=== PATIENT | female | born 2000 | race Caucasian/White ===

== ENCOUNTER 2024-02-14 11:26 | Emergency (ER) | payer OTHER ==
[~2024-02-14] VITALS: Ht 180.3 cm; Wt 74.8 kg
[2024-02-14] MEDS ORDERED: Dexamethasone Sod Phos 10 MG/ML 1ML VIAL PO ONE (12:40)
== END 2024-02-14 12:57 | disposition home or self-care (01) ==
LOC: ER 11:26
DX: J06.9 Acute upper respiratory infection, unspecified (principal)
CPT/HCPCS: 87081; 87430; 99283; J1100

== ENCOUNTER 2024-02-24 21:58 | Inpatient (IN) | payer OTHER ==
[~2024-02-24] VITALS: Ht 180.3 cm; Wt 75.9 kg
[2024-02-24 22:34] LABS: BASOPHILS ABSOLUTE AUTO 0.04 K/mm3 (0.00-0.23); BASOPHILS PERCENT AUTO 0 % (0-2); EOSINOPHILS ABSOLUTE AUTO 0.02 K/mm3 (0.00-0.68); EOSINOPHILS PERCENT AUTO 0 % (0-6); Hematocrit 39.6 % (33.0-51.0); Hemoglobin 13.8 g/dL (11.5-16.0); IMMATURE GRAN ABSOLUTE AUTO 0.03 K/mm3 (0.00-0.10); IMMATURE GRAN PERCENT AUTO 0 % (0-1); LYMPHOCYTES ABSOLUTE AUTO 2.26 K/mm3 (0.84-5.20); LYMPHOCYTES PERCENT AUTO 17 % (21-46); MONOCYTES ABSOLUTE AUTO 0.59 K/mm3 (0.16-1.47); MONOCYTES PERCENT AUTO 4 % (4-13); Mean Corpuscular HGB 31.6 pg (26.0-34.0); Mean Corpuscular HGB Conc 34.8 g/dL (31.5-36.5); Mean Corpuscular Volume 91 fL (80-100); NEUTROPHILS PERCENT AUTO 78 % (41-73); Platelet Count 293 K/mm3 (150-400); RDW Coefficient Variation 12.7 % (11.7-14.2); Red Blood Cell Count 4.37 M/mm3 (3.80-5.20); White Blood Cell Count 13.44 K/mm3 (4.00-11.30)
[2024-02-24] MEDS ORDERED: Sodium Bicarb 8.4% 1 MEQ/ML 50 ML Vial IV ONE (22:35)
[2024-02-24] MEDS ORDERED: Ondansetron HCl 2 MG / ML 2ML Vial IV ONE (22:35)
[2024-02-24] MEDS ORDERED: Sodium Bicarb 8.4% Inj 150 MEQ in Dextrose 5% 1,000 ML IV SCH (22:55)
[2024-02-24] MEDS ORDERED: Potassium Chloride 40 MEQ in NS 250 ML IV ONE (23:00)
[2024-02-24 23:03] LABS: Ethanol (Alcohol), Blood, Med <3 mg/dL; Magnesium, Blood 2.2 mg/dL (1.6-2.4)
[2024-02-24 23:07] LABS: Bicarbonate Venous 21.2 mmol/L (24.0-30.0); PCO2 Venous 29.2 mmHg (38-42); pH Blood Venous 7.43 (7.34-7.37)
[2024-02-24 23:09] LABS: U Amphetamine Screen Not Detected; U Barbituate Screen Not Detected; U Benzodiazapine Screen Not Detected; U Buprenorphine Screen Not Detected; U Cannabinoids Screen Not Detected; U Cocaine Screen Not Detected; U Methadone Screen Not Detected; U Methamphetamine Screen Not Detected; U Opiates Screen Not Detected; U Oxycodone Screen Not Detected; U Phencyclidine Screen Not Detected
[2024-02-24 23:12] LABS: Acetaminophen, Random <2.0 ug/mL (10.0-30.0); Alanine Aminotransfer (ALT/SGP 22 U/L (12-78); Albumin, Blood 4.5 g/dL (3.4-5.0); Albumin/Globulin Ratio 1.2 (0.8-1.8); Alk Phos 49 U/L (50-136); Anion Gap 13 mmol/L (3-11); Aspartate Aminotrans (AST/SGOT 18 U/L (12-37); Bilirubin, Total 0.2 mg/dL (0.1-1.0); Blood Urea Nitrogen 12 mg/dL (8-24); Bun/Creatinine Ratio 15.4 (12.0-20.0); CO2, Blood 21 mmol/L (21-32); Calcium, Blood 9.1 mg/dL (8.5-10.1); Chloride, Blood 111 mmol/L (98-108); Creatinine, Blood 0.78 mg/dL (0.40-1.00); Globulin, Blood 3.8 g/dL (2.2-4.0); Glomerular Filtration Rate 111 (60-); Glucose, Blood 119 mg/dL (70-99); Phosphorus, Blood 4.1 mg/dL (2.5-4.9); Potassium, Blood 3.8 mmol/L (3.5-5.5); Salicylate 60.7 mg/dL (2.8-20.0); Sodium, Blood 141 mmol/L (136-145); Total Protein, Blood 8.3 g/dL (6.4-8.2)
[2024-02-24 23:24] LABS: International Normalized Ratio 1.07; Prothrombin Time Results 11.4 Sec (9.7-11.5)
[2024-02-24] MEDS ORDERED: NS 1,000 ML IV SCH (23:30)
[2024-02-24] MEDS ORDERED: Charcoal/Sorbitol 50 GM (Cherry Flavor) PO ONE (23:30)
[2024-02-25] VITALS (27 sets, daily range): BP systolic 82–121; BP diastolic 46–75
[2024-02-25] MEDS ORDERED: Ondansetron HCl 2 MG / ML 2ML Vial IV PRN (00:10)
--- NOTE | 2024-02-25 01:30 | NUR ---
ASSUMED CARE OF PT PT ADMITTED INTO ICU 3 FROM ER. PT AMBULATED FROM [facility] TO BED ON HER OWN. PT HAS 2 PIV'S BILA AC'S. SHE HAS SODIUM BICARB GTT GOING AT 250/HR AND KCL RIDER GOING FOR 4 HRS. PT IS ALERT AND ORIENTED X4. PT NAUSEAS NO SIGNS OF BLEEDING CURRENTLY. PT IS WEARING READING GLASSES ALL OTHER BELONGINGS PUT IN LOCKED UPCUPBOARD IN ICU S/T SUICIDE PT PROTOCOL. THERE IS A PHONE AND CLOTHES. PT IS IN PAPER SCRUBS FROM ER. PT HAS NOT VOIDED ON HER OWN OF YET. SHE IS ANXIOUS BUT DOES NOT WANT TO HARM HERSELF CURRENTLY AND SAID SHE HAD AN IMPULSIVE RESPONSE TO SOMETHING THAT HAPPENED AT WORK TODAY. 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 SHE STATED THAT SHE IS FINE WITH HER MOTHER SEEING HER BUT HER FATHER COULD UPSET HER. WILL MONITOR VISITORS WHEN SHE HAS THEM. EKG SHOWS NSR 90'S. QT IS 352. VITALS OTHERWISE UNEVENTFUL/AFEBRILE MAP IN 80'S. PT DID HAVE ONE MOMENT OF NAUSEA AND VOMITTED UP CHARCOAL A TOTAL OF 400ML. ROOM WAS STRIPPED OUT. PT HAS A 1:1 SITTER AT DOORWAY. WILL CONTINUE TX PRESCRIBED.
[2024-02-25] MEDS ORDERED: Charcoal/Sorbitol 50 GM (Cherry Flavor) PO SCH ×2 (02:30→04:00)
[2024-02-25 02:38] LABS: Bicarbonate Venous 22.8 mmol/L (24.0-30.0); PCO2 Venous 35.4 mmHg (38-42); pH Blood Venous 7.41 (7.34-7.37)
[2024-02-25] MEDS ORDERED: Sodium Bicarb 8.4% Inj 150 MEQ in Dextrose 5% 1,000 ML IV SCH ×2 (04:00→06:15)
[2024-02-25 04:46] LABS: BASOPHILS ABSOLUTE AUTO 0.02 K/mm3 (0.00-0.23); BASOPHILS PERCENT AUTO 0 % (0-2); EOSINOPHILS PERCENT AUTO 0 % (0-6); Hematocrit 34.4 % (33.0-51.0); Hemoglobin 11.9 g/dL (11.5-16.0); IMMATURE GRAN ABSOLUTE AUTO 0.01 K/mm3 (0.00-0.10); IMMATURE GRAN PERCENT AUTO 0 % (0-1); LYMPHOCYTES PERCENT AUTO 15 % (21-46); MONOCYTES ABSOLUTE AUTO 0.36 K/mm3 (0.16-1.47); MONOCYTES PERCENT AUTO 4 % (4-13); Mean Corpuscular HGB 31.2 pg (26.0-34.0); Mean Corpuscular HGB Conc 34.6 g/dL (31.5-36.5); Mean Corpuscular Volume 90 fL (80-100); NEUTROPHILS ABSOLUTE AUTO 7.18 K/mm3 (1.96-9.15); NEUTROPHILS PERCENT AUTO 81 % (41-73); Platelet Count 243 K/mm3 (150-400); RDW Coefficient Variation 12.8 % (11.7-14.2); RDW Standard Deviation 42.5 fL (35.1-46.3); Red Blood Cell Count 3.81 M/mm3 (3.80-5.20); White Blood Cell Count 8.87 K/mm3 (4.00-11.30)
[2024-02-25 04:52] LABS: pH Blood Venous 7.53 (7.34-7.37)
[2024-02-25 04:53] LABS: Base Excess Venous -0.9 mmol/L; Bicarbonate Venous 24.7 mmol/L (24.0-30.0); PCO2 Venous 26.4 mmHg (38-42)
[2024-02-25 05:31] LABS: Albumin, Blood 3.6 g/dL (3.4-5.0); Albumin/Globulin Ratio 1.2 (0.8-1.8); Bilirubin, Total 0.2 mg/dL (0.1-1.0); Calcium, Blood 7.7 mg/dL (8.5-10.1); Creatinine, Blood 0.77 mg/dL (0.40-1.00); Globulin, Blood 3.1 g/dL (2.2-4.0); Potassium, Blood 3.5 mmol/L (3.5-5.5); Total Protein, Blood 6.7 g/dL (6.4-8.2)
--- NOTE | 2024-02-25 05:43 | NUR ---
update PT IS WANTING TO REST. SHE IS ENCOURAGED HOWEVER TO DRINK HER LIQUID CHARCOAL. PT'S PT IS 7.52 AND IS WITHING POISON CONTROLS RECOMMENDATIONS WHICH IS 7.45-7.55. PT HAS NOT VOIDED OF YET BUT WAS STRAIGHT CATHED IN THE ER. BICARB GTT GOING AT 250ML/HR TILL SALICYLATE IS BELOW 30 PER POISON CONTROL. HER POTASSIUM IS DOWN TO 3.5 THIS AM AFTER 40 MEQ WAS GIVEN THIS NIGHT. SHE WILL GET MORE TODAY. VS OTHERWISE IS HOLDING.
[2024-02-25] MEDS ORDERED: Potassium Chloride 40 MEQ in NS 250 ML IV ONE (06:15)
[2024-02-25 07:12] LABS: PCO2 Venous 29.1 mmHg (38-42); pH Blood Venous 7.52 (7.34-7.37)
[2024-02-25 07:33] LABS: Albumin, Blood 3.4 g/dL (3.4-5.0); Albumin/Globulin Ratio 1.1 (0.8-1.8); Bilirubin, Total 0.2 mg/dL (0.1-1.0); Bun/Creatinine Ratio 12.9 (12.0-20.0); Calcium, Blood 7.7 mg/dL (8.5-10.1); Creatinine, Blood 0.78 mg/dL (0.40-1.00); Potassium, Blood 3.2 mmol/L (3.5-5.5); Salicylate 32.8 mg/dL (2.8-20.0); Total Protein, Blood 6.4 g/dL (6.4-8.2)
[2024-02-25 09:27] LABS: Albumin, Blood 3.3 g/dL (3.4-5.0); Albumin/Globulin Ratio 1.1 (0.8-1.8); Bilirubin, Total 0.3 mg/dL (0.1-1.0); Bun/Creatinine Ratio 13.1 (12.0-20.0); Calcium, Blood 7.7 mg/dL (8.5-10.1); Creatinine, Blood 0.77 mg/dL (0.40-1.00); Globulin, Blood 2.9 g/dL (2.2-4.0); Potassium, Blood 3.4 mmol/L (3.5-5.5); Salicylate 27.8 mg/dL (2.8-20.0); Total Protein, Blood 6.2 g/dL (6.4-8.2)
[2024-02-25 11:26] LABS: Albumin, Blood 3.4 g/dL (3.4-5.0); Albumin/Globulin Ratio 1.2 (0.8-1.8); Bilirubin, Total 0.2 mg/dL (0.1-1.0); Calcium, Blood 7.8 mg/dL (8.5-10.1); Creatinine, Blood 0.75 mg/dL (0.40-1.00); Globulin, Blood 2.8 g/dL (2.2-4.0); Potassium, Blood 3.3 mmol/L (3.5-5.5); Salicylate 22.5 mg/dL (2.8-20.0); Total Protein, Blood 6.2 g/dL (6.4-8.2)
[2024-02-25] MEDS ORDERED: Potassium Chl 20MEQ/Water100ML 100 ML IV ONE (11:40)
[2024-02-25] MEDS ORDERED: NS 1,000 ML IV SCH (11:40)
--- NOTE | 2024-02-25 12:57 | NUR ---
REASSESSMENT PT HAS BEEN RESTING IN BED THROUGHOUT THE MORNING. DR. HUMPHREY CAME BY AND PLACED PT ON A HOLD. CIVIL RIGHTS READ TO PT AND PLACED IN ROOM. PT HAS BEEN ALERT AND ORIENTED. TINNITUS CONTINUES, BUT PT STATES IT IS BETTER THAN THIS MORNING. NAUSEA HAS IMPROVED WELL AND PT WAS ABLE TO EAT LUNCH. PT'S MOTHER CALLED AND WAS UPDATED. POISON CONTROL HAS BEEN UPDATED WELL THIS MORNING. LABS REPORTED TO AND ORDERS RECEIVED.
[2024-02-25 15:24] LABS: Bun/Creatinine Ratio 10.7 (12.0-20.0); Calcium, Blood 8.2 mg/dL (8.5-10.1); Creatinine, Blood 0.84 mg/dL (0.40-1.00); Potassium, Blood 3.7 mmol/L (3.5-5.5); Salicylate 11.4 mg/dL (2.8-20.0)
--- NOTE | 2024-02-25 17:09 | NUR ---
SHIFT SUMMARY PT CONTINUES TO DENY CURRENT SUICIDAL IDEAITON. SHE STATES THE TINNITUS IS SLOWLY IMPROVING. NAUSEA HAS IMPROVED AND TP WAS ABLE TO EAT LUNCH. ADDITIONAL POTASSIUM GIVEN PER DR. ARANA'S ORDERS AFTER LABS WERE REPORTED TO HIM THIS AFTERNOON. PT REMAINS ALERT AND ORIENTED, LUNGS CLEAR, RA, SR, BP STABLE. DR. WARREN SAW PT THIS AFTERNOON. PT'S BF HAD A SHORT VISIT WITH PT AND PT REMAINED CALM DURING VISIT. CONTINUING WITH PLAN OF CARE.
--- NOTE | 2024-02-25 19:23 | NUR ---
ASSUMED CARE PATIENT A&O X4, LAYING IN BED WATCHING TV WITH CALL LIGHT WITHIN REACH. NACL RUNNING AT 50ML/HR. LUNG SOUNDS CLEAR, HEART RATE 68, RADIAL AND PEDAL PULSES STRONG, SCDS ON BILATERAL LEGS. WILL CONTINUE TO MONITOR THROUGH OUT SHIFT.
[2024-02-26] VITALS (12 sets, daily range): BP systolic 80–119; BP diastolic 54–70
[2024-02-26 03:36] LABS: Hematocrit 34.3 % (33.0-51.0); Hemoglobin 11.6 g/dL (11.5-16.0)
[2024-02-26 03:44] LABS: Albumin, Blood 3.2 g/dL (3.4-5.0); Anion Gap 8 mmol/L (3-11); Blood Urea Nitrogen 9 mg/dL (8-24); Bun/Creatinine Ratio 12.3 (12.0-20.0); CO2, Blood 25 mmol/L (21-32); Calcium, Blood 8.1 mg/dL (8.5-10.1); Chloride, Blood 112 mmol/L (98-108); Creatinine, Blood 0.73 mg/dL (0.40-1.00); Glomerular Filtration Rate 120 (60-); Glucose, Blood 100 mg/dL (70-99); Magnesium, Blood 2.1 mg/dL (1.6-2.4); Phosphorus, Blood 2.7 mg/dL (2.5-4.9); Potassium, Blood 3.8 mmol/L (3.5-5.5); Salicylate <1.7 mg/dL (2.8-20.0); Sodium, Blood 141 mmol/L (136-145)
--- NOTE | 2024-02-26 05:38 | NUR ---
SHIFT SUMMARY PATIENT SLEPT THROUGH NIGHT ONLY WAKING UP WHEN NURSE WENT IN TO ASSESS PATIENT. PATIENT A&O X4, COOPERATIVE WITH CARE, HR 50-60'S, SPB 100-110'S WHILE ASLEEP. LUNGS CLEAR, BOWEL SOUNDS NORMAL, PATIENT GOT UP TWICE TO USE TOILET WITH YELLOW COLOR URINE 1550CC TOTAL. CALL LIGHT WITH IN REACH AND WILL CONTINUE TO MONITOR. SITTER OUTSIDE DOOR 1:1
--- NOTE | 2024-02-26 11:06 | NUR ---
DR. DE LA GARZAUFF TO BEDSIDE SUICIDE PRECAUTIONS AND SITTER D/C'D. PLAN TO D/C HOME TODAY. NOTIFIED WIRING MECHANIC, SAFETY PLAN WILL BE COMPLETED BEFORE D/C. POC ONGOING.
--- NOTE | 2024-02-26 14:08 | NUR ---
SHIFT SUMMARY ASSUMED CARE OF PT AT 0715, BEDSIDE REPORT RECIEVED FROM SOFTWARE DESIGN ENGINEER RN. PT IS A/O, PLEASANT AND COOPERATIVE. DENIES ANY SI AT THIS TIME. SR, BP WNL. 02 SAT 100% ON ROOM AIR, LUNGS CTA. DENIES NAUSEA, REGULAR DIET WITH GOOD APPETITE. VOIDS WITH STANDBY ASSIST TO COMMODE. SKIN INTACT. PIV X2 RIGHT ARM, BOTH SL, BOTH FLUSH WELL AND WITHDRAW BLOOD. NO FAMILY AT BEDSIDE. PSYCH TO BEDSIDE, RELEASED HOLD ON PT. DR. HUMPHREY IS HOSPITALIST FOLLOWING, D/C ORDERS RECIEVED. SARINA, CARE MANAGEMENT DIAGNOSTIC CARDIAC SONOGRAPHER TO BEDSIDE TO COMPLETE SAFETY PLAN. PT RECIEVED COPY AND COPY PLACED IN CHART. [facility] TRANSPORT HOME. BOTH PIV'S D/C'D AND PT TAKEN TO ADMITTING ENTRANCE VIA WHEELCHAIR WITH ALL BELONGINGS. MET BF AT ENTRANCE. ALL DC INSTRUCTIONS REVIEWED AND COPY SENT WITH PT.
== END 2024-02-26 13:11 | disposition home or self-care (01) | DRG 918 ==
LOC: ER 21:58 → ICUE 02-25 00:34
PROVIDERS: Emergency Medicine; Internal Medicine Nephrology; ADMIT Internal Medicine
DX: T39.012A Poisoning by aspirin, intentional self-harm, initial encounter (principal); E87.3 Alkalosis; E87.6 Hypokalemia; E86.0 Dehydration; F17.290 Nicotine dependence, other tobacco product, uncomplicated; F34.1 Dysthymic disorder; Z88.2 Allergy status to sulfonamides; Z88.8 Allergy status to other drugs, medicaments and biological substances; Z88.0 Allergy status to penicillin; Z56.89 Other problems related to employment
CPT/HCPCS: 36415; 71045; 74018; 80048; 80053; 80069; 81003; 82803; 83605; 83735; 84100; 84703; 85014; 85018; 85025; 85610; 85730; 93005; 93010; 96365; 96368; 96375; 99285-25; A9270; G0480; J2405; J3480; J7030; J7050; J7070